=== PATIENT | female | born 1985 | race Caucasian/White ===

== ENCOUNTER → 2018-08-10 08:54 | Outpatient (CLI) | payer OTHER | END | disposition home or self-care (01) | LOC: D.US 08:54 | PROVIDERS: ATTEND Family Medicine | DX: E04.9 Nontoxic goiter, unspecified (principal) ==

== ENCOUNTER → 2019-07-14 09:19 | Outpatient (CLI) | payer OTHER | END | disposition home or self-care (01) | LOC: D.RAD 07-09 13:45 → D.RT 07-09 16:00 | PROVIDERS: ATTEND Internal Medicine Pulmonary Disease | DX: R06.00 Dyspnea, unspecified (principal) ==